=== PATIENT | male | born 1950 | race Caucasian/White ===

== ENCOUNTER 2019-12-09 07:25 | Day surgery (SDC) | payer OTHER ==
[2019-12-08 14:55] VITALS: BMI 29.9
--- OUTSIDE RECORDS SUMMARY | 2019-12-09 07:29 | XMS ---
:1950 Author Organization [facility] Support Name Relationship Address Phone [employer] Unavailable [address] [place] [address] UNK Unavailable Unavailable Unavailable LENARD ALMARAZ [address] [place] [address] Re-disclosure Warning The records that you are about to access may contain information from federally- assisted alcohol or drug abuse programs. If such information is present, then the following federally mandated warning applies: This information has been disclosed to you from records protected by federal confidentiality rules (42 CFR part 2). The federal rules prohibit you from making any further disclosure of this information unless further disclosure is expressly permitted by the written consent of the person to whom it pertains or as otherwise permitted by 42 CFR part 2. A general authorization for the release of medical or other information is NOT sufficient for this purpose. The Federal rules restrict any use of the information to criminally investigate or prosecute any alcohol or drug abuse patient.The records that you are about to access may contain highly sensitive health information, the redisclosure of which is protected by Article 27-F of the [facility] Public Health law. If you continue you may haveaccess to information: Regarding HIV / AIDS; Provided by facilities licensed or operated by the [facility] Office of Mental Health; or Provided by the [facility] Office for People With Developmental Disabilities. If such information is present, then the following [facility] mandated warning applies: This information has been disclosed to you from confidential records which are protected by state law. State law prohibits you from making any further disclosure of this information without the specific written consent of the person to whom it pertains, or as otherwise permitted by law. Any unauthorized further disclosure in violation of state law may result in a fine or residential sentence or both. A general authorization for the release of medical or other information is NOT sufficient authorization for further disclosure. Insurance Providers Payer name Policy type Policy ID Covered Covered alliance party's Policy P claudia / Coverage alliance party ID relationship to [facility] type [facility] MEDICARE [id number]
[2019-12-09] MEDS ORDERED: ERYTHROMYCIN 0.5% OPHTHALMIC OINTMENT 3.5 GM TUBE ONE (09:13)
[2019-12-09] MEDS ORDERED: OXYMETAZOLINE 0.05% NASAL SOLUTION 15 ML BOTTLE NS ONE (09:13)
[2019-12-09] MEDS ORDERED: POVIDONE-IODINE 5% OPHTHALMIC PREP 30 ML SOLUTION ONE (09:14)
[2019-12-09] MEDS ORDERED: THROMBIN (RECOMBINANT) 5,000 UNIT VIAL TP ONE (09:14)
[2019-12-09] MEDS ORDERED: LIDOCAINE 1%/EPI 1:100000 (20 ML MULTI DOSE VIAL) ONE (09:14)
[2019-12-09] MEDS ORDERED: TETRACAINE 0.5% OPHTH SOLN 2 ML BOTTLE ONE (09:14)
[2019-12-09] MEDS ORDERED: SUCCINYLCHOLINE CHLORIDE 200 MG/10 ML SYRINGE ONE (09:22)
[2019-12-09] MEDS ORDERED: MIDAZOLAM HCL 2 MG/2 ML SINGLE DOSE VIAL ONE (09:22)
[2019-12-09] MEDS ORDERED: PROPOFOL 20 ML ONE (09:22)
[2019-12-09] MEDS ORDERED: DEXAMETHASONE SOD PHOSPHATE 4 MG/1 ML VIAL ONE (09:49)
[2019-12-09] MEDS ORDERED: LIDOCAINE HCL/PF 2% SDV 5ML VIAL ONE (09:49)
[2019-12-09] MEDS ORDERED: ONDANSETRON 4 MG/2 ML VIAL ONE (09:49)
[2019-12-09] MEDS ORDERED: ceFAZolin SODIUM 1 GM VIAL ONE (09:49)
[2019-12-09] MEDS ORDERED: KETOROLAC TROMETHAMINE 30 MG/1 ML VIAL ONE (09:49)
[2019-12-09] MEDS ORDERED: EPHEDRINE SULFATE/0.9% NACL/PF 50 MG/10 ML SYRINGE NR ONE (10:01)
[2019-12-09] MEDS ORDERED: BSS (NA/CA/MG/K) BALANCED SALT SOLUTION OPHTH SOLN 15 ML BOTTLE ONE (10:33)
[2019-12-09] MEDS ORDERED: ONDANSETRON 4 MG/2 ML VIAL IVPUSH PRN (11:21)
[2019-12-09] MEDS ORDERED: oxyCODONE HCL 5 MG TABLET PO PRN ×2 (11:21)
[2019-12-09] MEDS ORDERED: PROMETHAZINE HCL 25 MG/1 ML VIAL IVPUSH PRN (11:21)
--- NOTE | 2019-12-09 12:04 | OP ---
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 PROCEDURE: External dacryocystorhinostomy left, silicone intubation left lacrimal cyst and lacrimal sac biopsy left, partial turbinectomy left, partial ethmoidectomy left, topical mitomycin to the canalicular sac junction and endoscopy at the close of the case. SURGEON: Jelani Porter MD ANESTHESIA: General. COMPLICATIONS: None. ESTIMATED BLOOD LOSS: 10 to 20 mL OPERATIVE REPORT: Patient brought into the operating room, placed on the operating room table. Vital signs monitored by Anesthesia. Tear trough was marked on the left tear trough. Patient was placed under general anesthesia and LMA. Following this, the timeout was performed. Then a 50:50 mixture of 2% Xylocaine with 1:100,000 epinephrine and 0.5% Marcaine was injected in the tear trough, anterior lacrimal crest, dorsal nasal artery, lateral nasal sidewall and nasal through the upper and lower lid. Massage was applied for hemostasis. Under direct visualization the left naris was injected. Middle meatus, middle turbinate, septum and external naris were then packed with cottonoids moistened with Afrin. Patient was prepped and draped in the usual sterile fashion exposing both eyes. The right eye was taped closed with Steri-Strips. Tear trough incision was made through the skin and subcutaneous tissues. This was carried down with blunt spreading with a Osman scissors to the anterior lacrimal crest. Periosteal and anterior lateral and medial canthal tendon were then incised with [place] needle. Periosteum was reflected laterally exposing the lacrimal sac fossa and the lacrimal bone had already thinned and dehisced. Upbiting Kerrison rongeurs were used to create an osteotomy extending from the nasolacrimal duct to the medial canthal tendon and the anterior lacrimal crest to the posterior lacrimal crest. The nasal mucosa was removed and partial ethmoidectomy was performed en route to the nose and then the middle turbinate was partially resected with a Bre scissor as it was impinging on the osteal site. Hemostasis was achieved by packing with cottonoids moistened with thrombin. The upper and lower puncta were not dilated, intubated with Hernandez probes. The upper Hernandez probe was used to tent the medial which was incised with a 12-blade. Anterior and posterior lacrimal sacs were created with a Bre scissor. The posterior lacrimal sac was biopsied. The nose was packed with cottonoids moistened with thrombin. Mitomycin 0.2 mg/mL on a Gelfoam pledget was then placed in the area of the internal common canaliculus and canalicular sac junction for 3 minutes. It was then washed off with changes of BSS and the suction active the entire time. The Gelfoam was removed prior to washing. The cottonoid was then removed from the nose. Internal common canaliculoplasty was performed. The system was intubated with Gastelum probes which were retrieved through the left external naris. The stents were removed from the probes. Stent was tied with locking knot and secured to the left external naris with a single 6-0 Prolene with minimal tension on the of the left medial canthus. The anterior lacrimal sac flap was secured to the periosteum anterior to the osteotomy site with a 4-0 chromic mattressed suture and then 2 interrupted 4-0 chromic sutures, closing the sac over the ostium. The muscle layer was closed with 2 interrupted 6-0 Vicryl suture and the wound was closed with running 6-0 plain suture. Afrin was sprayed in the nose. Erythromycin was placed on the sutures. The patient was awakened from anesthesia and taken to recovery room in stable condition. JELANI PORTER M.D. [id number]
[2019-12-09 12:14] VITALS: TEMP 98.2
[2019-12-09] MEDS ORDERED: MITOMYCIN 0.02% EYE DROPS - 2ML VIAL IO ONE (12:15)
[2019-12-09 13:06] VITALS: BP 120/74; PULSE 66
--- NOTE | 2019-12-09 14:04 | HP ---
CHIEF COMPLAINT: Blocked left tear duct Optho: Dr. Zachary Porter HISTORY OF PRESENT ILLNESS: 68 year-old male with a PMH significant for HTN, HLD, congenital absence of one kidney, and epiphora OS x 3 months. This occured 5 years ago and resolved in one week. Now has been persistent. Ocular history is otherwise unremarkable. He presents to [facility] today to undergo left dacryocystorhinostomy with silcone intubation. Recent Travel: No PAST MEDICAL HISTORY: Congenital absence of one kidney PAST SURGICAL HISTORY: Right ankle fracture repair Social History: owns [employer], lives in [place] with Smoking: quit 50 years ago Alcohol: rare Drugs: no Family history: father 82 cancer; mother 57 breast cancer; brother 61 heart problems; 2 children a&w Allergies No Known Allergies Allergy (Verified 12/08/19 14:38) HOME MEDICATIONS: Home Medications Medication Instructions Recorded Aspirin [ASA -] 81 mg PO DAILY 12/08/19 Cholecalciferol (Vitamin D3) 2,000 unit PO DAILY 12/08/19 [Vitamin D3] Losartan/Hydrochlorothiazide 1 each PO DAILY 12/08/19 [Losartan-Hctz 50-12.5 mg Tab] Rosuvastatin Calcium 10 mg PO DAILY 12/08/19 REVIEW OF SYSTEMS CONSTITUTIONAL: Absent: fever, chills, diaphoresis, generalized weakness, malaise, loss of appetite, weight change HEENT: +tearing left eye Absent: rhinorrhea, nasal congestion, throat pain, throat swelling, difficulty swallowing, mouth swelling, ear pain, eye pain, visual changes CARDIOVASCULAR: Absent: chest pain, syncope, palpitations, irregular heart rate, lightheadedness, peripheral edema RESPIRATORY: Absent: cough, shortness of breath, dyspnea with exertion, orthopnea, wheezing, stridor, hemoptysis GASTROINTESTINAL: Absent: abdominal pain, abdominal distension, nausea, vomiting, diarrhea, constipation, melena, hematochezia GENITOURINARY: Absent: dysuria, frequency, urgency, hesitancy, hematuria, flank pain, genital pain MUSCULOSKELETAL: Absent: myalgia, arthralgia, joint swelling, back pain, neck pain SKIN: Absent: rash, itching, pallor HEMATOLOGIC/IMMUNOLOGIC: Absent: easy bleeding, easy bruising, lymphadenopathy, frequent infections ENDOCRINE: Absent: unexplained weight gain, unexplained weight loss, heat intolerance, cold intolerance NEUROLOGIC: Absent: headache, focal weakness or paresthesias, dizziness, unsteady gait, seizure, mental status changes, bladder or bowel incontinence PSYCHIATRIC: Absent: anxiety, depression, suicidal or homicidal ideation, hallucinations. PHYSICAL EXAMINATION Vital Signs - 24 hr 12/09/19 12/09/19 12/09/19 07:50 11:16 11:20 Temperature 98.4 F 97.7 F Pulse Rate 58 L 83 80 Respiratory 18 18 18 Rate Blood Pressure 126/78 116/58 L 118/56 L O2 Sat by Pulse 96 95 95 Oximetry (%) 12/09/19 12/09/19 12/09/19 11:25 11:30 11:50 Temperature Pulse Rate 74 72 63 Respiratory 19 20 20 Rate Blood Pressure 117/63 103/66 102/45 L O2 Sat by Pulse 96 96 96 Oximetry (%) 12/09/19 12/09/19 12/09/19 12:00 12:30 12:55 Temperature 98.2 F 98.2 F 98.2 F Pulse Rate 64 66 66 Respiratory 18 18 18 Rate Blood Pressure 115/72 120/74 120/74 O2 Sat by Pulse 95 96 Oximetry (%) GENERAL: Awake, alert, and fully oriented, in no acute distress. HEAD: Normal with no signs of trauma. EYES: Pupils equal, round and reactive to light, extraocular movements intact, sclera anicteric, conjunctiva clear. No lid lag. LUNGS: Breath sounds equal, clear to auscultation bilaterally. No wheezes, and no crackles. No accessory muscle use. HEART: Regular rate and rhythm, normal S1 and S2 ABDOMEN: Soft, nontender, not distended MUSCULOSKELETAL: Normal range of motion at all joints. No bony deformities or tenderness. No CVA tenderness. UPPER EXTREMITIES: 2+ pulses, warm, well-perfused. No cyanosis. No clubbing. No peripheral edema. LOWER EXTREMITIES: 2+ pulses, warm, well-perfused. No calf tenderness. No peripheral edema. NEUROLOGICAL: Cranial nerves II-XII intact. Normal speech. Labs in chart reviewed ASSESSMENT/PLAN: 68 year-old male with a PMH significant for HTN, HLD, congenital absence of one kidney, and epiphora OS x 3 months, to undergo left dacryocystorhinostomy with silcone intubation today with Dr. Porter. Hypertension --BP stable --continue losartan/HCTZ perioperatively unless contraindicated Hyperlipidemia --continue statin perioperatively Family Medical History Family History: As Documented Visit type - Medication Review Med list reviewed for High Risk Meds patients 65 and older: Yes - Emergency Visit Emergency Visit: No - New Patient This patient is new to me today: Yes Date on this admission: 12/09/19 - Critical Care Critical Care patient: No
--- NOTE | 2019-12-12 16:57 | PATH ---
Surgical Pathology Report Patient Name: ED ALMARAZ Med. Rec. #: [id number] /Age/Gender: 1950 (Age: 68) / M Account: [id number] Location: [facility] Taken: 12/09/2019 Received: 12/09/2019 Reported: 12/12/2019 Physicians: Zachary Porter Specimen(s) Received A: LEFT LACRIMAL SAC B: LEFT TURBINATE Clinical History Blocked left tear duct Final Diagnosis A. LACRIMAL SAC, LEFT, EXCISION: LACRIMAL SAC TISSUE SHOWING CHRONIC INFLAMMATION AND FIBROSIS. B. TURBINATE, LEFT, EXCISION: LACRIMAL SAC TISSUE SHOWING CHRONIC INFLAMMATION AND FIBROSIS. BONE WITH NO PATHOLOGIC FINDINGS. Electronically Signed Shantel Atkinson M.D. Gross Description A. Received in formalin labeled "left lacrimal sac," are 2 juarez tissue fragments measuring 0.2 and 0.3 cm in greatest dimension. The specimens are submitted in toto in one cassette. B. Received in formalin labeled "left turbinate," are 2 juarez tissue fragments measuring 0.6 and 0.7 cm in greatest dimension. The specimens are submitted in toto in one cassette. 12/10/2019 saudi12/10/2019
== END 2019-12-09 12:55 | disposition home or self-care (01) ==
LOC: FASU 07:25
PROVIDERS: ATTEND Ophthalmology
PROC: 09BV0ZZ Excision of Left Ethmoid Sinus, Open Approach (ICD-10-PCS; 2019-12-09)
PROC: 08BY0ZZ Excision of Left Lacrimal Duct, Open Approach (ICD-10-PCS; principal; 2019-12-09 10:05)
DX: H04.542 Stenosis of left lacrimal canaliculi (principal); H04.552 Acquired stenosis of left nasolacrimal duct; H04.202 Unspecified epiphora, left side
CPT/HCPCS: 88304-TC; 94760

== ENCOUNTER 2020-11-20 16:55 | Emergency (ER) | payer OTHER ==
[2020-11-20 17:22] VITALS: BP 140/91; PULSE 62; TEMP 98.1; BMI 28.8
[2020-11-20 18:15] LABS: EPITHELIAL CELLS FEW /hpf
[2020-11-20] MEDS ORDERED: CEPHALEXIN MONOHYDRATE 500 MG CAPSULE (UD) PO ONE (18:19)
[2020-11-20] MEDS ORDERED: CEPHALEXIN MONOHYDRATE 500 MG CAPSULE (UD) ONE (18:35)
== END 2020-11-20 18:39 | disposition home or self-care (01) ==
LOC: FER 16:55
DX: N39.0 Urinary tract infection, site not specified (principal)
CPT/HCPCS: 81003; 81015; 87086; 87186; 99283-25

== ENCOUNTER 2021-05-16 13:04 | Emergency (ER) | payer OTHER ==
[2021-05-16 13:29] VITALS: BP 120/72; PULSE 88; TEMP 99.9; BMI 28.8
== END 2021-05-16 14:15 | disposition home or self-care (01) ==
LOC: FER 13:04
DX: U07.1 COVID-19 (principal)
CPT/HCPCS: 99282-25